=== PATIENT | female | born 1980 | race Caucasian/White ===

== ENCOUNTER 2016-11-09 02:06 | Observation (INO) | payer SELFPAY ==
--- NOTE | 2016-11-09 02:21 | CPEKG ---
Heart Rate: 86 RR Interval: 698 P-R Interval: 168 QRSD Interval: 80 QT Interval: 388 QTC Interval: 464 P Renville: 18 QRS Renville: 47 T Wave Renville: 55 EKG Severity - ABNORMAL ECG - EKG Impression: SINUS RHYTHM EKG Impression: VENTRICULAR TRIGEMINY Electronically Signed By: Kiley Tucker 09-Nov-2016 06:01:02
[2016-11-09 02:26] LABS: % IMMATURE GRANULYOCYTES 0.4 % (0.0-1.1); ABSOLUTE IMMATURE GRANULOCYTES 0.04 10^3/uL (0.00-0.10); ADD DIFF? NO; ADD MORPH? NO; ADD SCAN? NO; ATYPICAL LYMPHOCYTE FLAG 0 (0-99); FRAGMENT RBC FLAG 0 (0-99); HEMATOCRIT 42.2 % (38.0-47.0); HEMOGLOBIN 14.1 g/dL (12.6-16.3); LEFT SHIFT FLG 0 (0-99); LIPEMIA HEMOLYSIS FLAG 80 (0-99); MEAN CELL HEMOGLOBIN 28.4 pg (27.9-34.1); MEAN CELL HEMOGLOBIN CONCENTR. 33.4 g/dL (32.4-36.7); MEAN CELL VOLUME 84.9 fL (81.5-99.8); MEAN PLATELET VOLUME 11.9 fL (8.7-11.7); PLATELET CLUMPS FLAG 10 (0-99); PLATELET COUNT 311 10^3/uL (150-400); RED BLOOD CELL COUNT 4.97 10^6/uL (4.18-5.33)
[2016-11-09 02:39] LABS: ALANINE AMINOTRANSFERASE 38 IU/L (9-52); ALBUMIN 4.5 g/dL (3.5-5.0); ALKALINE PHOSPHATASE 85 IU/L (38-126); ANION GAP 11 mEq/L (8-16); ASPARTATE AMINOTRANSFERASE 22 IU/L (14-46); BILIRUBIN,TOTAL 0.4 mg/dL (0.1-1.4); CALCIUM 9.7 mg/dL (8.5-10.4); CARBON DIOXIDE 25 mEq/l (22-31); CHLORIDE 106 mEq/L (97-110); CREATININE 0.7 mg/dL (0.6-1.0); GLOMERULAR FILTRATION RATE > 60; GLUCOSE 109 mg/dL (70-100); MAGNESIUM 1.7 mg/dL (1.6-2.3); POTASSIUM 4.4 mEq/L (3.5-5.2); SODIUM 142 mEq/L (134-144); TOTAL PROTEIN 7.9 g/dL (6.3-8.2)
[2016-11-09 02:50] LABS: TROPONIN I < 0.012 ng/mL (0-0.034)
--- NOTE | 2016-11-09 03:09 | EDPHY ---
H & P Stated Complaint: syncope-palapatations Time Seen by Provider: 11/09/16 02:17 HPI/ROS: HPI The patient presents brought in by paramedics emergently for concern for bradycardia. She is visiting from [place] and is camping with family in [place]. Over the course of the last 2 days she is had lightheadedness and palpitations which have been intermittent though getting progressively worse. Apparently, she has had 3 syncopal episodes today. These were witnessed by her nephew. When paramedics arrived the patient had a blood pressure of 90/52, pulse is seemed quite variable ranging from the 30s to 80s on the monitor. They did not administer any medications except for Zofran for nausea. Patient was seen in it outside hospital emergency room about 5 days ago in [place]. She was there for lightheadedness. She was monitored and was told that she was having dysrhythmia. She was started on atenolol 25 mg once daily. Her last dose was at 9:00 a.m. yesterday. REVIEW OF SYSTEMS Constitutional: No fever, no chills. Eyes: No discharge. ENT: No sore throat. Cardiovascular: No chest pain, positive for palpitations. Respiratory: No cough, no shortness of breath. Gastrointestinal: No abdominal pain, no vomiting. Genitourinary: No hematuria. Musculoskeletal: No back pain. Skin: No rashes. Neurological: No headache. PMHx: Mitral valve prolapse Soc Hx: Visiting from [place] PHYSICAL General Appearance: Alert, no distress Eyes: Pupils equal and round no pallor or injection ENT, Mouth: Mucous membranes moist Respiratory: There are no retractions, lungs are clear to auscultation Cardiovascular: Regular rate and rhythm Gastrointestinal: Abdomen is soft and non-tender, no masses, bowel sounds normal Neurological: A&O, moves all extremities Skin: Warm and dry, no rashes Musculoskeletal: Neck is supple non tender Extremities: symmetrical, full range of motion Psychiatric: Patient is oriented X 3, there is no agitation Source: Patient, EMS Exam Limitations: No limitations - Medical/Surgical History Other PMH: palaptations, syncope, mitral valve prolapse, Constitutional: Initial Vital Signs Temperature (C) 36.6 C 11/09/16 02:19 Heart Rate 83 11/09/16 02:19 Respiratory Rate 16 11/09/16 02:19 Blood Pressure 116/95 H 11/09/16 02:19 O2 Sat (%) 96 11/09/16 02:19 O2 Delivery Mode Nasal Cannula O2 (L/minute) 2 Allergies/Adverse Reactions: ciprofloxacin Allergy (Verified 11/09/16 02:25) Sulfa (Sulfonamide Antibiotics) Allergy (Verified 11/09/16 02:25) Home Medications: Medication Instructions Recorded Atenolol 11/09/16 Medical Decision Making - Diagnostics EKG Interpretation: EKG: Complete interpretation has been separately recorded in the [facility] archive. Summary impression: Trigeminy. Imaging Results: Chest x-ray one view shows no cardiomegaly, no effusion, interpreted by me, radiology interpretation is pending. Differential Diagnosis: This is a 36-year-old female who presents with syncope, lightheadedness for the last 1 day. She was recently evaluated and is now on atenolol after an ER admission in which she was diagnosed with some sort of dysrhythmia. Her rhythm strip shows trigeminy however she is not having any sinus pauses. It would be unusual for this to cause syncope. Differential diagnosis includes arrhythmia, bradycardia related to beta fer use, hypotension, dehydration, altitude sickness. Plan for IV fluid administration, continued cardiac monitoring, EKG, chest x-ray , basic labs. In the emergency room labs and studies were all relatively unremarkable. Patient remained stable on the monitoring analyst with no events on telemetry. Given her multiple syncopal episodes today, I feel she warrants observation in the hospital and have discussed the case with the hospitalist Dr. Rahul Arshad. - Data Points Laboratory Results: Laboratory Results 11/09/16 02:10 11/09/16 02:10 11/09/16 11/09/16 11/09/16 03:43 02:10 02:10 WBC RBC Hgb POC Hgb 14.6 gm/dL gm/dL (12.3-15.9) Hct POC Hct 43 % % (35.5-47.5) MCV MCH MCHC RDW Plt Count MPV Neut % (Auto) Lymph % (Auto) Alcorn % (Auto) Eos % (Auto) Baso % (Auto) Nucleat RBC Rel Count Absolute Neuts (auto) Absolute Lymphs (auto) Absolute Monos (auto) Absolute Eos (auto) Absolute Basos (auto) Absolute Nucleated RBC Immature Gran % Immature Gran # POC Sodium 144 mEq/L mEq/L (134-144) Sodium POC Potassium 4.0 mEq/L mEq/L (3.3-5.0) Potassium POC Chloride 105 mEq/L mEq/L (96-108) Chloride Carbon Dioxide Anion Gap POC BUN 16 mg/dL mg/dL (7-23) BUN Creatinine POC Creatinine 0.7 mg/dL mg/dL (0.6-1.2) Estimated GFR Glucose POC Glucose 115 mg/dL H mg/dL (70-100) Calcium Phosphorus 3.2 mg/dL mg/dL (2.5-4.5) Magnesium Total Bilirubin AST ALT Alkaline Phosphatase Troponin I NT-Pro-B Natriuret Pep 77 pg/mL pg/mL (0-125) Total Protein Albumin TSH 2.180 uIU/mL uIU/mL (0.465-4.680) Urine Opiates Screen NEGATIVE (NEGATIVE) Urine Barbiturates NEGATIVE (NEGATIVE) Ur Phencyclidine Scrn NEGATIVE (NEGATIVE) Ur Amphetamine Screen NEGATIVE (NEGATIVE) U Benzodiazepines Scrn NEGATIVE (NEGATIVE) Urine Cocaine Screen NEGATIVE (NEGATIVE) U Marijuana (THC) Screen NEGATIVE (NEGATIVE) 11/09/16 11/09/16 02:10 02:10 WBC 10.37 10^3/uL H 10^3/uL (3.80-9.50) RBC 4.97 10^6/uL 10^6/uL (4.18-5.33) Hgb 14.1 g/dL g/dL (12.6-16.3) POC Hgb Hct 42.2 % % (38.0-47.0) POC Hct MCV 84.9 fL fL (81.5-99.8) MCH 28.4 pg pg (27.9-34.1) MCHC 33.4 g/dL g/dL (32.4-36.7) RDW 13.0 % % (11.5-15.2) Plt Count 311 10^3/uL 10^3/uL (150-400) MPV 11.9 fL H fL (8.7-11.7) Neut % (Auto) 61.6 % % (39.3-74.2) Lymph % (Auto) 28.1 % % (15.0-45.0) Alcorn % (Auto) 7.5 % % (4.5-13.0) Eos % (Auto) 1.9 % % (0.6-7.6) Baso % (Auto) 0.5 % % (0.3-1.7) Nucleat RBC Rel Count 0.0 % % (0.0-0.2) Absolute Neuts (auto) 6.39 10^3/uL 10^3/uL (1.70-6.50) Absolute Lymphs (auto) 2.91 10^3/uL 10^3/uL (1.00-3.00) Absolute Monos (auto) 0.78 10^3/uL 10^3/uL (0.30-0.80) Absolute Eos (auto) 0.20 10^3/uL 10^3/uL (0.03-0.40) Absolute Basos (auto) 0.05 10^3/uL 10^3/uL (0.02-0.10) Absolute Nucleated RBC 0.00 10^3/uL 10^3/uL (0-0.01) Immature Gran % 0.4 % % (0.0-1.1) Immature Gran # 0.04 10^3/uL 10^3/uL (0.00-0.10) POC Sodium Sodium 142 mEq/L mEq/L (134-144) POC Potassium Potassium 4.4 mEq/L mEq/L (3.5-5.2) POC Chloride Chloride 106 mEq/L mEq/L (97-110) Carbon Dioxide 25 mEq/l mEq/l (22-31) Anion Gap 11 mEq/L mEq/L (8-16) POC BUN BUN 16 mg/dL mg/dL (7-23) Creatinine 0.7 mg/dL mg/dL (0.6-1.0) POC Creatinine Estimated GFR > 60 Glucose 109 mg/dL H mg/dL (70-100) POC Glucose Calcium 9.7 mg/dL mg/dL (8.5-10.4) Phosphorus Magnesium 1.7 mg/dL mg/dL (1.6-2.3) Total Bilirubin 0.4 mg/dL mg/dL (0.1-1.4) AST 22 IU/L IU/L (14-46) ALT 38 IU/L IU/L (9-52) Alkaline Phosphatase 85 IU/L IU/L (38-126) Troponin I < 0.012 ng/mL ng/mL (0-0.034) NT-Pro-B Natriuret Pep Total Protein 7.9 g/dL g/dL (6.3-8.2) Albumin 4.5 g/dL g/dL (3.5-5.0) TSH Urine Opiates Screen Urine Barbiturates Ur Phencyclidine Scrn Ur Amphetamine Screen U Benzodiazepines Scrn Urine Cocaine Screen U Marijuana (THC) Screen Point of Care Test Results: 11/09/16 02:10 POC Sodium 144 POC Potassium 4.0 POC Chloride 105 POC BUN 16 POC Creatinine 0.7 POC Glucose 115 H Departure - Departure Disposition: [facility]patient Acute Clinical Impression: Palpitations, Trigeminy Syncope Qualifiers: Syncope type: unspecified Qualified Code(s): R55 - Syncope and collapse Condition: Fair
[2016-11-09] MEDS ORDERED: ACETAMINOPHEN 325 MG TAB PO PRN (04:13)
[2016-11-09] MEDS ORDERED: TEMAZEPAM 15 MG CAP PO PRN (04:13)
[2016-11-09] MEDS ORDERED: ONDANSETRON DISINTEGRATING 4 MG TAB PO PRN (04:13)
--- NOTE | 2016-11-09 07:05 | GHP ---
[f rep st] HISTORY AND PHYSICAL DATE OF ADMISSION: 11/09/2016 CHIEF COMPLAINT: Syncope. HISTORY OF PRESENT ILLNESS: This is a 36-year-old female who is camping up in [place], [facility] [place], who presents with syncope. She was sitting in her tent facing her nephew who sa id that she had 2 episodes of presyncope then a full episode of syncope. There was no seizure activ ity. She regained consciousness within a few seconds. She has had some shortness of breath as well as chest pressure recently. They called paramedics after this. En route, paramedics described slo w VFib with pulse from the 30s to 80s. This has not been corroborated on any strips or tele here. Her pressure was 90/50 en route. She has had a long history of palpitations. These started in 2003 when her 2nd child was born. She has had serial echocardiograms. She describes initially having had mitral stenosis. She has had a Holter monitor which did not show any significant arrhythmias. She has had no stress test. She we nt to the emergency department about 5 days ago in [place] for another episode of syncope. She had had 1 prior episode of syncope in 2013. She also notes a 10-pound weight gain in about the past week. She has been told she has frequent PVCs though nothing more concerning. PAST MEDICAL/SURGICAL HISTORY: 1. Cardiac history as above. 2. Cholecystectomy. 3. Tubal ligation. MEDICATIONS: Atenolol, this was started last Thursday. ALLERGIES: Ciprofloxacin and sulfa. FAMILY HISTORY: Her aunt had sudden cardiac . SOCIAL HISTORY: She does not drink or smoke. REVIEW OF SYSTEMS: 10-point review of systems is conducted and is negative except per HPI. PHYSICAL EXAMINATION: VITAL SIGNS: Blood pressure 115/72, heart rate 72, respiration rate 16, satu rating 97% on 2 L. Temperature is 36.6. GENERAL: The patient is a pleasant female who is resting comfortably, in no acute distress. HEENT: Shows her to be normocephalic, atraumatic. CARDIOVASCUL AR: Shows her to have frequent premature beats. She has no murmurs, rubs, or gallops. PULMONARY: Lungs clear to auscultation bilaterally. ABDOMEN: Soft, nontender, nondistended. SKIN: No rash. : No Wong. NEUROLOGIC: Shows her to be alert and oriented x3. She is moving all extremities . PSYCHIATRIC: Shows normal mood and affect. LABS: White count is 10.3. Basic metabolic panel is normal. Magnesium is normal. Troponin is neg ative. Liver function tests are normal. Urine tox screen is negative. DATA: 1. I discussed this with Dr. Tucker. Will plan to admit to med/surg. 2. I personally reviewed and interpreted her EKG. This shows frequent PVCs in somewhat of a trigem inal pattern. Her underlying rhythm is sinus. She has a left axis deviation. 3. Chest x-ray, which I personally reviewed and interpreted, shows a normal-sized heart. I do not see anything acute. IMPRESSION AND PLAN: This is a 36-year-old female, admitted with syncope, found to have frequent pr emature ventricular contractions on monitoring here: Syncope/frequent premature ventricular contractions: She also reports a 10-pound weight gain. Give n this, I will order an echocardiogram. She has also had some chest pain. I will order a Lexiscan stress test as she does not think she will be able to exercise sufficiently given the frequency of h er premature ventricular contractions. I think it is reasonable to continue her atenolol for now. She lives in [place] and will need to follow up with Cardiology there. TSH is pending at this t [facility] as well. This is a high-risk diagnosis. /[id number]/MODL
--- NOTE | 2016-11-09 11:41 | GHP ---
[f rep st] HISTORY AND PHYSICAL DATE OF ADMISSION: 11/09/2016 CHIEF COMPLAINT: We have been asked by Dr. Arshad to evaluate the patient with an episode of syncope. HISTORY OF PRESENT ILLNESS: The patient is a 36-year-old female with a history of palpitations, who was admitted on 11/09/2016 with an episode of syncope. The patient is from [place], [place]. She recently traveled to [place] for a camping trip over the holiday weekend. The patient was camping up in [place] with her nephew when she began to notice increased symptoms of palpitations. She sat down in her tent to go to sleep and subsequently had an episode of syncope. The event was witnessed by her nephew, who stated she had 2 episodes of presyncope followed by an episode of mannie syncope. There was no seizure-like activity. There was no loss of bowel or bladder control. The patient regained consciousness within a few seconds. The patient denied symptoms of chest pain prior to the event. She did report an increase in her palpitations associated with her event. There was no associated nausea, vomiting, or diaphoresis. The patient states that she was more short of breath than usual since traveling to [place]. She denies symptoms of chest pain. No orthopnea or PND. Patient does report a recent 10-pound weight gain. This was diagnosed when she presented to the ER and found that her weight was 10 pounds higher than her baseline weight. The patient does have a long history of palpitations. These started in 2003 after her second child was born. She was diagnosed with frequent premature ventricular contractions at that time. She was initially managed with p.r.n. propranolol. She was later started on scheduled atenolol. The patient also reports a previous history of syncope. The patient's first episode of syncope occurred in 2013 when she was driving into her driveway. The patient reports symptoms of palpitations with that event but denies chest pain, nausea or diaphoresis. Patient's second episode of syncope occurred the Thursday prior to admission while she was in [place]. At that time, she presented to the emergency department and was noted to have frequent premature ventricular contractions. She was started on atenolol 25 mg daily. She has been taking this intermittently depending on her blood pressure and pulse. PAST MEDICAL HISTORY: 1. Palpitations. 2. History of mitral stenosis. 3. Syncope. 4. Cholecystectomy. 5. Tubal ligation. MEDICATIONS: 1. Atenolol. 2. CoQ10. 3. Vitamin D. SOCIAL HISTORY: Patient is an RN. She lives in [place], [place]. She does not drink or smoke. FAMILY HISTORY: Notable for sudden cardiac in her aunt. REVIEW OF SYSTEMS: A 10-point review of systems is negative except as noted in HPI. PHYSICAL EXAMINATION: GENERAL: Patient is resting comfortably in bed at this time. She does not appear to be in acute distress. VITALS: Temperature is afebrile, pulse is 82, blood pressure is 104/72, respiratory rate is 16, SaO2 is 95% on room air. HEENT: Normocephalic, atraumatic. Extraocular muscles intact. NECK: No JVD. No bruits. LUNGS: Clear to auscultation bilaterally. CARDIOVASCULAR: Regular rate and rhythm. S1, S2. Grade 2/6 holosystolic murmur is noted at the left sternal border. ABDOMEN: Soft, nontender. Normoactive bowel sounds. EXTREMITIES: No edema. SKIN: No evidence of rashes. NEURO: Patient is awake, alert and oriented x3. LABORATORY: White blood cell count 10.37, hemoglobin 14.1, hematocrit 42.2, platelet count 311. Sodium 144, potassium 4.0, chloride 105, CO2 25, BUN 16, creatinine 0.7. Troponin within normal limits x2. TSH 2.18. Tox screen is negative. Electrocardiogram demonstrates sinus rhythm with frequent premature ventricular contractions, normal axis, normal intervals. T-wave inversions in leads V1 and V2. The premature ventricular contractions have a left bundle branch block morphology but do not have the typical inferior axis suggestive of an outflow tract PVC. ASSESSMENT AND PLAN: The patient is a 36-year-old female with: 1. Premature ventricular contractions - The patient has a long history of premature ventricular contractions starting in 2003. Her premature ventricular contractions come in variable intensity. She was previously managed with propranolol as needed but later started on atenolol daily. Will transition patient from atenolol to metoprolol 12.5 mg b.i.d. as this may not affect her blood pressure as much. 2. Mitral stenosis - Patient reports a history of mitral stenosis. She was followed with serial echocardiograms demonstrating no progression of disease. Her last echocardiogram was approximately 5 years ago. Will plan on repeating echocardiogram at this time. 3. Syncope - The patient presents with an episode of syncope while camping in [place]. She reports 2 previous episodes of syncope. Her first episode occurred in 2013 and her second episode occurred approximately 1 week prior to admission. Her episodes of syncope are associated with palpitations but not chest pain. Potential precipitating causes would include dehydration combined with recent initiation of atenolol therapy, a primary arrhythmic event, and ischemia. Will obtain an MRI to exclude arrhythmogenic right ventricular dysplasia and a CT angiogram to look for an anomalous coronary artery. /[id number]/MODL MTDD
--- NOTE | 2016-11-09 11:50 | ECHO ---
[id number] + + [address] : : [place] [address] : : [phone] + + Adult Echocardiographic Report + --------+ :Name: Vivek GASCA Date: 11/09/2016 10:10 AM : : Hospital Admission Number: [id number] Locat ion: 212: :: 1980 Gender: Female Height: 66 in : :Age: 36 yrs Race: WH Weight: 185 l b : :Reason For Study: Eval LV Fx : : BSA: 1.9 mete rs2 : :History: Syncope : + --------+ MMode/2D Measurements \T\ Calculations IVSd: 0.70 cm LVIDd: 4.3 cm FS: 38.8 % Ao root diam: 2.7 cm LVPWd: 0.81 cm LVIDs: 2.6 cm EDV(Teich): 83.7 ml ACS: 1.7 cm ESV(Teich): 25.5 ml LA dimension: 3.3 cm EF(Teich): 69.5 % Normal Measurement Values: + + :LVIDd (3.5-5.7cm) IVSd (0.6-1.1cm) LVPWd (0.6-1.1cm) Aortic Root (2.0-3.7cm)Left Atrium (1.5-4.0cm): :LV Vol(d) (76-115ml) LV Vol(s) (29-48ml) Ejec Fraction (50-65%)PV Graeme (0.6- 1.2m/s) TV Graeme (0.4-1.0m/s) : :MV E Graeme (0.8-1.0m/s)MV A Graeme (0.3-1.0m/s)LVOT Graeme (0.7-1.2m/s) Asc Ao Graeme ( 0.9-1.8m/s) : + + Doppler Measurements \T\ Calculations MV E max graeme: Ao V2 max: LV V1 max: PA V2 max: 84.4 cm/sec 147.0 cm/sec 80.0 cm/sec 116.7 cm/sec MV A max graeme: Ao max PG: LV V1 max PG: PA max P.5 cm/sec 8.6 mmHg 2.6 mmHg 5.5 mmHg MV E/A: 1.1 TR max graeme: 205.0 cm/sec TR max P.8 mmHg RAP systole: 5.0 mmHg RVSP(TR): 21.8 mmHg Left Ventricle The left ventricle is normal in size. There is normal left ventricular wall thickness. The left ventricular ejection fraction is normal. Ejection Fraction = 70%. Ectopy noted during exam. The left ventricular wall motion is normal. Right Ventricle The right ventricle is normal in size and function. Atria The left atrial size is normal. Right atrial size is normal. Mitral Valve The mitral valve is normal in structure and function. There is no mitral regurgitation noted. Tricuspid Valve There is trace tricuspid regurgitation. Right ventricular systolic pressure is normal. Aortic Valve The aortic valve is not well visualized. There is no aortic stenosis. There is no aortic insufficiency. Pulmonic Valve The pulmonic valve is not well visualized. Great Vessels The aortic root is normal size. Pericardium/Pleural There is no pericardial effusion. Conclusion A complete two-dimensional transthoracic echocardiogram was performed (2D, M-mode, Doppler and color flow Doppler). 1. The left ventricle is normal in size. There is normal left ventricular wall thickness. The Ejection Fraction = 70%. 2. The right ventricle is normal in size and function. 3. The mitral valve is normal in structure and function. 4. The aortic valve is not well visualized. There is no aortic stenosis. There is no aortic insufficiency. 5. Right ventricular systolic pressure is normal. 6. No old studies for comparison. Final Reading Physician: Sohail Stringer MD electronically signed on 11/09/2016 11:47 AM Ordering Physician: Rahul Arshad Performed By: To Silverman, CARLOSCS
--- NOTE | 2016-11-09 14:14 | HOSPPROG ---
Hospitalist Progress Note Assessment/Plan: pt seen and examined and discussed with cardiology. Will get cardiac MRI tomorrow Objective: Vital Signs Temp Pulse Resp BP Pulse Ox 36.7 C 71 14 112/54 L 94 11/09/16 11:30 11/09/16 11:30 11/09/16 11:30 11/09/16 11:30 11/09/16 11:30 11/08/16 11/09/16 11/10/16 05:59 05:59 05:59 Intake Total 100 Balance 100 ICD10 Worksheet Patient Problems: Problems Problem Status Onset Palpitations Acute Syncope Acute Trigeminy Acute
[2016-11-09] MEDS: METOPROLOL TARTRATE 25 MG TAB PO SCH (20:21)
--- NOTE | 2016-11-10 08:19 | SOAPPROG ---
ABHI Progress Note Assessment/Plan: 1. PVCs - Pt has a history of PVCs dating back to 2003. Her PVCs have a LBBB morphology. Pt is symptomatic with the PVCs. Started metoprolol 12.5 mg bid on 11/09. --> Continue current therapy 2. Murmur - Pt reports a history of mitral valve disease. Echocardiogram demonstrates no significant valvular heart disease. No further work up at this time. 3. Syncope - Pt admitted with an episode of Syncope. She reports 3 episodes since 2013. No evidence of structural heart disease on echocardiogram. Telemetry monitoring with PVCs but is otherwise unremarkable. Pt declines CT angiogram to evaluate for CAD and anomalous coronary artery. Pt is scheduled for an MRI today to evaluate for arrhythmogenic RV dysplasia given LBBB PVCs and inverted T waves in V1 and V2. another potential cause for her last episode was dehydration and recent starting of atenolol 25 mg daily resulting in hypotension. --> Await MR results. Subjective: No further episodes of syncope No significant arrhythmias on telemetry monitoring. Tolerated first dose of metoprolol No chest pain Objective: Vital Signs Temp Pulse Resp BP Pulse Ox 36.6 C 68 18 103/50 L 94 11/10/16 05:18 11/10/16 05:18 11/10/16 05:18 11/10/16 05:18 11/10/16 05:18 11/09/16 11/10/16 11/11/16 05:59 05:59 05:59 Intake Total 100 1670 Balance 100 1670 - Time Spent With Patient Time Spent With Patient: Greater than 50% of this 20 min visit was spent discussing condition and work up with patient and spouse Physical Exam - Physical Exam General Appearance: alert, no apparent distress Neuro/Psych: alert, oriented x 3 ICD10 Worksheet Patient Problems: Problems Problem Status Onset Palpitations Acute Syncope Acute Trigeminy Acute
[2016-11-10] MEDS: METOPROLOL TARTRATE 25 MG TAB PO SCH (09:24)
[2016-11-10] MEDS ORDERED: GADOBUTROL 10 ML VIAL IVP ONE (10:16)
[2016-11-10 12:31] VITALS: PULSE 75; RESP 16
[2016-11-10 15:57] VITALS: BP 119/59; TEMP 98.1; O2SAT 98
--- NOTE | 2016-11-10 18:24 | GDS ---
[f rep st] DISCHARGE SUMMARY DISCHARGE DIAGNOSES: 1. Syncope of unknown etiology, but could be due to dehydration and atenolol. 2. Trigeminy. HISTORY/HOSPITAL COURSE: The patient is a 36-year-old female, who had a syncopal episode while camp ing. The patient was admitted for over 24 hours, and telemetry findings did not show any arrhythmia s. Cardiology was consulted, and they requested a cardiac MRI due to her abnormality of EKG, which could suggest right ventricular dysplasia. This was negative. She was started on atenolol. This w as switched over to metoprolol 12.5 mg b.i.d., which she has tolerated pretty well. She will be discharged home to follow up with her primary care doctor and quality analyst. /[id number]/MODL
== END 2016-11-10 19:00 | disposition home or self-care (01) ==
LOC: F2W 05:17
PROVIDERS: ADMIT Student in an Organized Health Care Education/Training Program; ATTEND Internal Medicine
DX: R55 Syncope and collapse (principal); I49.3 Ventricular premature depolarization
CPT/HCPCS: 80305; 82947-QW; A9585; G0378